=== PATIENT | male | born 1945 | race Caucasian/White ===

== ENCOUNTER 2020-02-17 20:06 | Inpatient (IN) | payer OTHER, BC ==
[2020-02-17] MEDS ORDERED: PANTOPRAZOLE SODIUM 40 MG in SODIUM CHLORIDE 100 ML IVPB ONE (20:32)
[2020-02-17] MEDS ORDERED: PANTOPRAZOLE SODIUM 40 MG/100 ML BAG IVPB ONE (21:05)
[2020-02-17 21:22] LABS: BASO % 0.5 % (0-2.0); EOS % 2.2 % (0-4.5); HEMATOCRIT 16.9 % (35.4-49); LYMPH % 7.9 % (8-40); MCH 30.7 pg (25.7-33.7); MCHC 29.3 g/dl (32.0-35.9); MEAN CELL VOLUME 104.5 fl (80-96); MEAN PLT VOLUME 8.6 fl (7.5-11.1); MONO % 9.7 % (3.8-10.2); NEUT % 79.7 % (42.8-82.8); PLATELET COUNT 430 K/MM3 (134-434); RBC 1.62 M/mm3 (4.00-5.60); RETICULOCYTES 7.28 % (0.5-1.5); WHITE BLOOD COUNT 6.3 K/mm3 (4.0-10.0)
[2020-02-17 21:28] LABS: INR 1.09 (0.83-1.09); PROTHROMBIN TIME (PATIENT) 13.1 SEC (9.7-13.0)
[2020-02-17 21:31] LABS: ACTIVATED PTT 29.9 SECONDS (25.2-36.5); CALCIUM 9.4 mg/dL (8.5-10.1)
[2020-02-17 21:32] LABS: ALBUMIN 2.3 g/dl (3.4-5.0); BLOOD UREA NITROGEN 46.5 mg/dL (7-18)
[2020-02-17 21:35] LABS: CREATININE 1.2 mg/dL (0.55-1.3)
[2020-02-17 21:37] LABS: BILIRUBIN,TOTAL 0.2 mg/dL (0.2-1); TOT PROT 6.5 g/dl (6.4-8.2)
[2020-02-17] MEDS ORDERED: ACETAMINOPHEN 1000 MG/100 ML BAG IVPB ONE (21:46)
[2020-02-17] MEDS ORDERED: PANTOPRAZOLE SODIUM 40 MG VIAL ONE (21:46)
[2020-02-17] MEDS: PANTOPRAZOLE SODIUM 80 MG in SODIUM CHLORIDE 100 ML IVPB SCH (22:08)
[2020-02-17] MEDS ORDERED: ACETAMINOPHEN INJECTION 100 ML IVPB ONE (22:13)
[2020-02-17 22:36] LABS: EPI CELLS 1 /uL (0-25.1); HYALINE CASTS 5 /uL (0-3.1); PH,URINE 7.5 (5.0-8.0); URINE APPEARANCE TURBID; URINE BACTERIA >9,000 /uL (0-1359); URINE BILIRUBIN NEGATIVE (NEGATIVE); URINE COLOR YELLOW; URINE GLUCOSE (UA) NEGATIVE (NEGATIVE); URINE KETONE NEGATIVE (NEGATIVE); URINE LEUK ESTERASE 3+ (NEGATIVE); URINE NITRITE NEGATIVE (NEGATIVE); URINE PROTEIN 1+ (NEGATIVE); URINE RBC 113 /uL (0-23.9); URINE UROBILINOGEN 0.2 mg/dL (0.2-1.0); URINE WBC 10624 /uL (0-25.8)
[2020-02-17 22:47] LABS: ANISOCYTOSIS 2+; MACROCYTOSIS 1+
[2020-02-17 22:49] LABS: PLATELET ESTIMATE ADEQUATE
[2020-02-17] MEDS ORDERED: CEFTRIAXONE 1,000 MG in DEXTROSE 5%-WATER - 50 ML IVPB ONE (23:22)
[2020-02-18] MEDS ORDERED: CEFTRIAXONE 1 GM/50 ML BAG ONE ×2 (00:54→09:34)
[2020-02-18] MEDS: PANTOPRAZOLE SODIUM 80 MG in SODIUM CHLORIDE 100 ML IVPB SCH (07:31)
[2020-02-18] MEDS: CEFTRIAXONE 1 GM in DEXTROSE 5%-WATER - 50 ML IVPB SCH (09:37)
[2020-02-18 09:56] LABS: BASO % 0.7 % (0-2.0); EOS % 1.9 % (0-4.5); HEMATOCRIT 23.4 % (35.4-49); HEMOGLOBIN 7.4 GM/dL (11.7-16.9); LYMPH % 5.7 % (8-40); MCH 31.1 pg (25.7-33.7); MCHC 31.7 g/dl (32.0-35.9); MEAN CELL VOLUME 98.1 fl (80-96); MEAN PLT VOLUME 8.4 fl (7.5-11.1); MONO % 9.4 % (3.8-10.2); NEUT % 82.3 % (42.8-82.8); PLATELET COUNT 398 K/MM3 (134-434); RBC 2.38 M/mm3 (4.00-5.60); RDW 19.5 % (11.9-15.9); WHITE BLOOD COUNT 6.6 K/mm3 (4.0-10.0)
[2020-02-18] MEDS ORDERED: POLYETHYLENE GLYCOL 3350 119 GM BTL PO SCH (10:11)
[2020-02-18 10:18] LABS: CALCIUM 9.2 mg/dL (8.5-10.1)
[2020-02-18 10:19] LABS: ALBUMIN 2.1 g/dl (3.4-5.0); BLOOD UREA NITROGEN 45.6 mg/dL (7-18); MAGNESIUM 2.6 mg/dL (1.8-2.4)
[2020-02-18 10:22] LABS: CREATININE 1.4 mg/dL (0.55-1.3)
[2020-02-18 10:24] LABS: BILIRUBIN,TOTAL 0.6 mg/dL (0.2-1)
[2020-02-18] MEDS: POLYETHYLENE GLYCOL 3350 119 GM BTL GT SCH ×2 (15:00→21:20)
[2020-02-18] MEDS ORDERED: DEXTROSE 5%-1/3 NS - 500 ML IV SCH (15:30)
[2020-02-18] MEDS: PANTOPRAZOLE SODIUM 40 MG VIAL IVPUSH SCH (21:20)
[2020-02-18] MEDS ORDERED: ACETAMINOPHEN 1000 MG/100 ML BAG IVPB ONE (22:26)
[2020-02-19] MEDS ORDERED: ACETAMINOPHEN 1000 MG/100 ML BAG IVPB ONE (03:53)
[2020-02-19] MEDS: POLYETHYLENE GLYCOL 3350 119 GM BTL GT SCH ×3 (05:33→22:41)
[2020-02-19 06:52] LABS: BASO % 0.3 % (0-2.0); EOS % 2.4 % (0-4.5); HEMATOCRIT 23.1 % (35.4-49); HEMOGLOBIN 7.5 GM/dL (11.7-16.9); LYMPH % 7.2 % (8-40); MCH 30.9 pg (25.7-33.7); MCHC 32.4 g/dl (32.0-35.9); MEAN CELL VOLUME 95.2 fl (80-96); MEAN PLT VOLUME 8.3 fl (7.5-11.1); MONO % 12.5 % (3.8-10.2); NEUT % 77.6 % (42.8-82.8); PLATELET COUNT 426 K/MM3 (134-434); RBC 2.42 M/mm3 (4.00-5.60); RDW 19.3 % (11.9-15.9); WHITE BLOOD COUNT 6.3 K/mm3 (4.0-10.0)
[2020-02-19 07:16] LABS: ALBUMIN 2.1 g/dl (3.4-5.0); BLOOD UREA NITROGEN 43.8 mg/dL (7-18); CALCIUM 9.1 mg/dL (8.5-10.1); CREATININE 1.4 mg/dL (0.55-1.3)
[2020-02-19 07:17] LABS: BILIRUBIN,TOTAL 0.4 mg/dL (0.2-1)
[2020-02-19 07:18] LABS: MAGNESIUM 2.4 mg/dL (1.8-2.4); TOT PROT 5.9 g/dl (6.4-8.2)
[2020-02-19] MEDS ORDERED: cefTRIAXone SODIUM 1 GM VIAL ONE (09:35)
[2020-02-19] MEDS ORDERED: DEXTROSE 5%-WATER - 50 ML IVPB ONE (09:35)
[2020-02-19] MEDS: CEFTRIAXONE 1 GM in DEXTROSE 5%-WATER - 50 ML IVPB SCH (09:41)
[2020-02-19] MEDS: PANTOPRAZOLE SODIUM 40 MG VIAL IVPUSH SCH (09:41)
[2020-02-19] MEDS ORDERED: LIDOCAINE HCL 5% TOP OINTMENT 50 GM TUBE TP SCH (10:30)
[2020-02-19] MEDS ORDERED: MECLIZINE HCL 12.5 MG TABLET GT PRN (12:36)
[2020-02-19] MEDS ORDERED: ACETAMINOPHEN 650 MG/20.3 ML ORAL SOLUTION (CUPS) GT PRN (12:39)
[2020-02-19] MEDS ORDERED: PT OWN MED DRAWER 7, Y5N ONE (15:08)
[2020-02-19] MEDS: LIDOCAINE HCL 5% TOP OINTMENT 50 GM TUBE TP SCH (15:38)
[2020-02-19] MEDS ORDERED: PEG 3350/NA SULF BICARB CL/KCL 4000 ML SOLN.RECON GT ONE (16:00)
[2020-02-19] MEDS ORDERED: PEG 3350/NA SULF BICARB CL/KCL 4000 ML SOLN.RECON PO ONE (16:00)
[2020-02-19] MEDS ORDERED: ONDANSETRON 4 MG/2 ML VIAL IVPUSH ONE (17:42)
[2020-02-19] MEDS ORDERED: RAPID SEQUENCE INTUBATION KIT NR ONE (18:04)
[2020-02-19] MEDS ORDERED: MIDAZOLAM HCL 2 MG/2 ML SINGLE DOSE VIAL ONE ×2 (18:05→18:06)
[2020-02-19] MEDS: DEXTROSE 5%-1/3 NS - 500 ML IV SCH (21:20)
[2020-02-19] MEDS: HYDROCORTISONE ACETATE 25 MG/SUPP.RECT RC SCH (22:42)
[2020-02-19] MEDS: MELATONIN 1 MG TABLET PO SCH (22:42)
[2020-02-20] MEDS: POLYETHYLENE GLYCOL 3350 119 GM BTL GT SCH ×3 (05:17→22:55)
[2020-02-20] MEDS ORDERED: PT OWN MED DRAWER 7, Y5N ONE ×3 (06:46→20:21)
[2020-02-20 07:22] LABS: BASO % 0.3 % (0-2.0); EOS % 3.2 % (0-4.5); HEMATOCRIT 24.1 % (35.4-49); HEMOGLOBIN 7.6 GM/dL (11.7-16.9); LYMPH % 5.7 % (8-40); MCH 30.6 pg (25.7-33.7); MCHC 31.6 g/dl (32.0-35.9); MEAN CELL VOLUME 96.8 fl (80-96); MEAN PLT VOLUME 8.5 fl (7.5-11.1); MONO % 8.7 % (3.8-10.2); NEUT % 82.1 % (42.8-82.8); PLATELET COUNT 432 K/MM3 (134-434); RBC 2.49 M/mm3 (4.00-5.60); RDW 19.7 % (11.9-15.9); WHITE BLOOD COUNT 6.4 K/mm3 (4.0-10.0)
[2020-02-20 07:53] LABS: ALBUMIN 2.2 g/dl (3.4-5.0); BLOOD UREA NITROGEN 33.7 mg/dL (7-18); CALCIUM 9.1 mg/dL (8.5-10.1)
[2020-02-20 07:56] LABS: CREATININE 1.4 mg/dL (0.55-1.3)
[2020-02-20 07:58] LABS: BILIRUBIN,TOTAL 0.5 mg/dL (0.2-1); TOT PROT 6.2 g/dl (6.4-8.2)
[2020-02-20] MEDS ORDERED: cefTRIAXone SODIUM 1 GM VIAL ONE (10:52)
[2020-02-20] MEDS ORDERED: DEXTROSE 5%-WATER - 50 ML IVPB ONE (10:53)
[2020-02-20] MEDS: DEXTROSE 5%-1/3 NS - 500 ML IV SCH ×2 (10:54→22:54)
[2020-02-20] MEDS: CEFTRIAXONE 1 GM in DEXTROSE 5%-WATER - 50 ML IVPB SCH (10:54)
[2020-02-20] MEDS: LIDOCAINE HCL 5% TOP OINTMENT 50 GM TUBE TP SCH (11:00)
[2020-02-20] MEDS: DOCUSATE NA 100 MG/10 ML UNIT-DOSE CUPS GT SCH (11:20)
[2020-02-20] MEDS: FAMOTIDINE 40 MG/5 ML ORAL SUSPENSION PEG SCH ×2 (11:20→18:00)
[2020-02-20] MEDS: FOLIC ACID 1 MG TABLET (FP) GT SCH (12:55)
[2020-02-20] MEDS: HYDROCORTISONE ACETATE 25 MG/SUPP.RECT RC SCH (22:55)
[2020-02-20] MEDS: MELATONIN 1 MG TABLET PO SCH (22:55)
[2020-02-21] MEDS: POLYETHYLENE GLYCOL 3350 119 GM BTL GT SCH ×3 (06:37→21:19)
[2020-02-21] MEDS ORDERED: cefTRIAXone SODIUM 1 GM VIAL ONE (07:57)
[2020-02-21] MEDS ORDERED: DEXTROSE 5%-WATER - 50 ML IVPB ONE (07:57)
[2020-02-21] MEDS: DOCUSATE NA 100 MG/10 ML UNIT-DOSE CUPS GT SCH (09:22)
[2020-02-21] MEDS: CEFTRIAXONE 1 GM in DEXTROSE 5%-WATER - 50 ML IVPB SCH (09:23)
[2020-02-21] MEDS: FOLIC ACID 1 MG TABLET (FP) GT SCH (09:23)
[2020-02-21] MEDS: LIDOCAINE HCL 5% TOP OINTMENT 50 GM TUBE TP SCH (09:24)
[2020-02-21] MEDS: FAMOTIDINE 40 MG/5 ML ORAL SUSPENSION PEG SCH (10:10)
[2020-02-21] MEDS: DEXTROSE 5%-1/3 NS - 500 ML IV SCH (15:49)
[2020-02-21] MEDS: HYDROCORTISONE ACETATE 25 MG/SUPP.RECT RC SCH (21:19)
[2020-02-21] MEDS: ERTAPENEM SODIUM 1 GM in SODIUM CHLORIDE 50 ML IVPB SCH (21:19)
[2020-02-21] MEDS: MELATONIN 1 MG TABLET PO SCH (21:32)
[2020-02-21] MEDS ORDERED: MELATONIN 5 MG TABLETS PO ONE (21:38)
[2020-02-21] MEDS ORDERED: PT OWN MED DRAWER 7, Y5N ONE (22:52)
[2020-02-22] MEDS: POLYETHYLENE GLYCOL 3350 119 GM BTL GT SCH ×3 (06:23→22:55)
[2020-02-22 07:38] LABS: ALBUMIN 2.1 g/dl (3.4-5.0); BLOOD UREA NITROGEN 27.8 mg/dL (7-18); CALCIUM 9.2 mg/dL (8.5-10.1)
[2020-02-22 07:42] LABS: BILIRUBIN,TOTAL 0.4 mg/dL (0.2-1)
[2020-02-22 08:09] LABS: BASO % 0.3 % (0-2.0); EOS % 2.8 % (0-4.5); HEMATOCRIT 23.8 % (35.4-49); HEMOGLOBIN 7.6 GM/dL (11.7-16.9); LYMPH % 7.6 % (8-40); MCH 30.7 pg (25.7-33.7); MCHC 31.8 g/dl (32.0-35.9); MEAN CELL VOLUME 96.5 fl (80-96); MEAN PLT VOLUME 8.5 fl (7.5-11.1); MONO % 10.7 % (3.8-10.2); NEUT % 78.6 % (42.8-82.8); PLATELET COUNT 405 K/MM3 (134-434); RBC 2.47 M/mm3 (4.00-5.60); RDW 18.8 % (11.9-15.9); WHITE BLOOD COUNT 4.9 K/mm3 (4.0-10.0)
[2020-02-22] MEDS ORDERED: PT OWN MED DRAWER 7, Y5N ONE ×3 (10:15→22:06)
[2020-02-22] MEDS: FOLIC ACID 1 MG TABLET (FP) GT SCH (10:16)
[2020-02-22] MEDS: ERTAPENEM SODIUM 1 GM in SODIUM CHLORIDE 50 ML IVPB SCH (10:17)
[2020-02-22] MEDS: LIDOCAINE HCL 5% TOP OINTMENT 50 GM TUBE TP SCH (10:18)
[2020-02-22] MEDS: FAMOTIDINE 40 MG/5 ML ORAL SUSPENSION PEG SCH (10:18)
[2020-02-22 10:48] LABS: PLATELET ESTIMATE NORMAL
[2020-02-22] MEDS: DOCUSATE NA 100 MG/10 ML UNIT-DOSE CUPS GT SCH (11:49)
[2020-02-22] MEDS: DEXTROSE 5%-1/3 NS - 500 ML IV SCH (16:45)
[2020-02-22] MEDS ORDERED: DEXTROSE 5%-1/3 NS - 500 ML IV SCH ×2 (16:51→17:53)
[2020-02-22] MEDS: HYDROCORTISONE ACETATE 25 MG/SUPP.RECT RC SCH (22:55)
[2020-02-22] MEDS: MELATONIN 1 MG TABLET PO SCH (22:55)
[2020-02-23] MEDS: POLYETHYLENE GLYCOL 3350 119 GM BTL GT SCH ×3 (05:27→22:28)
[2020-02-23 06:55] LABS: BASO % 0.4 % (0-2.0); EOS % 3.3 % (0-4.5); HEMATOCRIT 24.2 % (35.4-49); HEMOGLOBIN 7.7 GM/dL (11.7-16.9); LYMPH % 5.3 % (8-40); MCH 30.8 pg (25.7-33.7); MCHC 31.7 g/dl (32.0-35.9); MEAN CELL VOLUME 97.2 fl (80-96); PLATELET COUNT 340 K/MM3 (134-434); RBC 2.49 M/mm3 (4.00-5.60); RDW 19.2 % (11.9-15.9)
[2020-02-23 07:20] LABS: BLOOD UREA NITROGEN 22.7 mg/dL (7-18); CALCIUM 9.2 mg/dL (8.5-10.1)
[2020-02-23 07:24] LABS: CREATININE 0.9 mg/dL (0.55-1.3)
[2020-02-23 07:25] LABS: BILIRUBIN,TOTAL 0.4 mg/dL (0.2-1); TOT PROT 5.8 g/dl (6.4-8.2)
[2020-02-23] MEDS ORDERED: PT OWN MED DRAWER 7, Y5N ONE (09:21)
[2020-02-23] MEDS: FOLIC ACID 1 MG TABLET (FP) GT SCH (10:52)
[2020-02-23] MEDS: FAMOTIDINE 40 MG/5 ML ORAL SUSPENSION PEG SCH (10:53)
[2020-02-23] MEDS: LIDOCAINE HCL 5% TOP OINTMENT 50 GM TUBE TP SCH (10:53)
[2020-02-23] MEDS: ERTAPENEM SODIUM 1 GM in SODIUM CHLORIDE 50 ML IVPB SCH (10:53)
[2020-02-23] MEDS: DEXTROSE 5%-1/3 NS - 500 ML IV SCH (22:26)
[2020-02-23] MEDS: MELATONIN 1 MG TABLET PO SCH (22:28)
[2020-02-23] MEDS: HYDROCORTISONE ACETATE 25 MG/SUPP.RECT RC SCH (22:28)
[2020-02-24] MEDS: POLYETHYLENE GLYCOL 3350 119 GM BTL GT SCH ×3 (05:50→23:17)
[2020-02-24 07:09] LABS: ALBUMIN 1.9 g/dl (3.4-5.0); BLOOD UREA NITROGEN 19.1 mg/dL (7-18); CALCIUM 8.6 mg/dL (8.5-10.1)
[2020-02-24 07:12] LABS: CREATININE 0.9 mg/dL (0.55-1.3)
[2020-02-24 07:13] LABS: BASO % 0.2 % (0-2.0); EOS % 3.8 % (0-4.5); HEMATOCRIT 23.8 % (35.4-49); HEMOGLOBIN 7.9 GM/dL (11.7-16.9); LYMPH % 7.5 % (8-40); MCH 31.6 pg (25.7-33.7); MEAN CELL VOLUME 95.7 fl (80-96); MEAN PLT VOLUME 8.4 fl (7.5-11.1); NEUT % 79.5 % (42.8-82.8); PLATELET COUNT 360 K/MM3 (134-434); RBC 2.49 M/mm3 (4.00-5.60); RDW 18.4 % (11.9-15.9); WHITE BLOOD COUNT 6.2 K/mm3 (4.0-10.0)
[2020-02-24 07:14] LABS: BILIRUBIN,TOTAL 0.1 mg/dL (0.2-1); TOT PROT 5.6 g/dl (6.4-8.2)
[2020-02-24] MEDS ORDERED: PEG 3350/NA SULF BICARB CL/KCL 4000 ML SOLN.RECON PEG ONE (09:00)
[2020-02-24] MEDS: FOLIC ACID 1 MG TABLET (FP) GT SCH (10:01)
[2020-02-24] MEDS: ERTAPENEM SODIUM 1 GM in SODIUM CHLORIDE 50 ML IVPB SCH (10:02)
[2020-02-24] MEDS: FAMOTIDINE 40 MG/5 ML ORAL SUSPENSION PEG SCH (10:04)
[2020-02-24] MEDS: DEXTROSE 5%-1/3 NS - 500 ML IV SCH (12:00)
[2020-02-24] MEDS ORDERED: BISACODYL 10 MG SUPP.RECT PR ONE (21:00)
[2020-02-24] MEDS: LIDOCAINE HCL 5% TOP OINTMENT 50 GM TUBE TP SCH (23:06)
[2020-02-24] MEDS ORDERED: PT OWN MED DRAWER 7, Y5N ONE (23:14)
[2020-02-24] MEDS: MELATONIN 1 MG TABLET PO SCH (23:50)
[2020-02-25] MEDS: oxyCODONE HCL 5 MG TABLET GT PRN ×2 (00:04→22:14)
[2020-02-25] MEDS: DEXTROSE 5%-1/3 NS - 500 ML IV SCH ×2 (01:00→22:09)
[2020-02-25] MEDS: POLYETHYLENE GLYCOL 3350 119 GM BTL GT SCH ×2 (06:36→22:02)
[2020-02-25 06:57] LABS: BASO % 0.4 % (0-2.0); EOS % 4.6 % (0-4.5); HEMATOCRIT 24.8 % (35.4-49); LYMPH % 9.5 % (8-40); MCH 30.9 pg (25.7-33.7); MCHC 32.4 g/dl (32.0-35.9); MEAN CELL VOLUME 95.4 fl (80-96); MEAN PLT VOLUME 8.4 fl (7.5-11.1); NEUT % 76.5 % (42.8-82.8); PLATELET COUNT 372 K/MM3 (134-434); RDW 18.6 % (11.9-15.9); WHITE BLOOD COUNT 5.1 K/mm3 (4.0-10.0)
[2020-02-25 07:18] LABS: CALCIUM 8.7 mg/dL (8.5-10.1)
[2020-02-25 07:19] LABS: ALBUMIN 1.9 g/dl (3.4-5.0); BLOOD UREA NITROGEN 15.2 mg/dL (7-18)
[2020-02-25 07:23] LABS: BILIRUBIN,TOTAL 0.4 mg/dL (0.2-1); CREATININE 0.7 mg/dL (0.55-1.3)
[2020-02-25 07:24] LABS: TOT PROT 5.8 g/dl (6.4-8.2)
[2020-02-25] MEDS: DEXTROSE 5%-0.45% SALINE 1,000 ML IV SCH ×2 (08:30→22:13)
[2020-02-25] MEDS: FAMOTIDINE 40 MG/5 ML ORAL SUSPENSION PEG SCH (10:00)
[2020-02-25] MEDS: FOLIC ACID 1 MG TABLET (FP) GT SCH (10:02)
[2020-02-25] MEDS ORDERED: PT OWN MED DRAWER 7, Y5N ONE ×3 (10:05→21:59)
[2020-02-25] MEDS: ERTAPENEM SODIUM 1 GM in SODIUM CHLORIDE 50 ML IVPB SCH (10:08)
[2020-02-25] MEDS: LIDOCAINE HCL 5% TOP OINTMENT 50 GM TUBE TP SCH (16:00)
[2020-02-25] MEDS: MELATONIN 1 MG TABLET PO SCH (22:13)
[2020-02-26] MEDS: ACETAMINOPHEN 650 MG/20.3 ML ORAL SOLUTION (CUPS) GT PRN ×2 (04:27→22:38)
[2020-02-26] MEDS: oxyCODONE HCL 5 MG TABLET GT PRN ×2 (04:29→22:37)
[2020-02-26 07:09] LABS: BASO % 0.5 % (0-2.0); EOS % 4.3 % (0-4.5); HEMATOCRIT 23.8 % (35.4-49); HEMOGLOBIN 7.8 GM/dL (11.7-16.9); LYMPH % 11.9 % (8-40); MCHC 32.9 g/dl (32.0-35.9); MEAN CELL VOLUME 94.2 fl (80-96); MEAN PLT VOLUME 8.4 fl (7.5-11.1); MONO % 11.7 % (3.8-10.2); NEUT % 71.6 % (42.8-82.8); PLATELET COUNT 352 K/MM3 (134-434); RBC 2.53 M/mm3 (4.00-5.60); RDW 18.2 % (11.9-15.9); WHITE BLOOD COUNT 3.7 K/mm3 (4.0-10.0)
[2020-02-26 07:21] LABS: ALBUMIN 1.8 g/dl (3.4-5.0); CALCIUM 8.8 mg/dL (8.5-10.1)
[2020-02-26 07:24] LABS: CREATININE 0.8 mg/dL (0.55-1.3)
[2020-02-26 07:25] LABS: BILIRUBIN,TOTAL 0.5 mg/dL (0.2-1); TOT PROT 5.5 g/dl (6.4-8.2)
[2020-02-26] MEDS ORDERED: PT OWN MED DRAWER 7, Y5N ONE ×3 (09:24→21:58)
[2020-02-26] MEDS: FAMOTIDINE 40 MG/5 ML ORAL SUSPENSION PEG SCH (09:31)
[2020-02-26] MEDS: FOLIC ACID 1 MG TABLET (FP) GT SCH (09:32)
[2020-02-26] MEDS: POLYETHYLENE GLYCOL 3350 119 GM BTL GT SCH ×2 (09:49→22:38)
[2020-02-26] MEDS: LIDOCAINE HCL 5% TOP OINTMENT 50 GM TUBE TP SCH (09:49)
[2020-02-26] MEDS: ERTAPENEM SODIUM 1 GM in SODIUM CHLORIDE 50 ML IVPB SCH (10:33)
[2020-02-26] MEDS: MELATONIN 1 MG TABLET PO SCH (22:37)
[2020-02-26] MEDS: DEXTROSE 5%-0.45% SALINE 1,000 ML IV SCH (22:37)
[2020-02-27] MEDS: DEXTROSE 5%-0.45% SALINE 1,000 ML IV SCH ×2 (02:51→11:54)
[2020-02-27] MEDS ORDERED: PT OWN MED DRAWER 7, Y5N ONE ×2 (08:57→11:43)
[2020-02-27] MEDS: ERTAPENEM SODIUM 1 GM in SODIUM CHLORIDE 50 ML IVPB SCH (09:02)
[2020-02-27] MEDS: FAMOTIDINE 40 MG/5 ML ORAL SUSPENSION PEG SCH (09:02)
[2020-02-27] MEDS: FOLIC ACID 1 MG TABLET (FP) GT SCH (09:04)
[2020-02-27] MEDS: POLYETHYLENE GLYCOL 3350 119 GM BTL GT SCH (09:08)
[2020-02-27] MEDS: LIDOCAINE HCL 5% TOP OINTMENT 50 GM TUBE TP SCH (09:19)
[2020-02-27 10:51] LABS: BASO % 0.2 % (0-2.0); EOS % 3.5 % (0-4.5); HEMOGLOBIN 8.4 GM/dL (11.7-16.9); LYMPH % 7.6 % (8-40); MCH 31.2 pg (25.7-33.7); MCHC 32.4 g/dl (32.0-35.9); MEAN CELL VOLUME 96.3 fl (80-96); MEAN PLT VOLUME 8.6 fl (7.5-11.1); MONO % 10.1 % (3.8-10.2); NEUT % 78.6 % (42.8-82.8); PLATELET COUNT 379 K/MM3 (134-434); RDW 18.1 % (11.9-15.9); WHITE BLOOD COUNT 4.5 K/mm3 (4.0-10.0)
[2020-02-27 11:12] LABS: ALBUMIN 1.9 g/dl (3.4-5.0); CALCIUM 8.6 mg/dL (8.5-10.1)
[2020-02-27 11:13] LABS: BLOOD UREA NITROGEN 11.6 mg/dL (7-18)
[2020-02-27 11:16] LABS: CREATININE 0.7 mg/dL (0.55-1.3)
[2020-02-27 11:17] LABS: BILIRUBIN,TOTAL 0.2 mg/dL (0.2-1); TOT PROT 5.7 g/dl (6.4-8.2)
[2020-02-27] MEDS: NITROFURANTOIN MACROCRYSTAL 50 MG CAPSULE (FP) PO SCH ×2 (11:44→18:23)
[2020-02-27 16:26] VITALS: BP 127/73; PULSE 73; TEMP 98.1
== END 2020-02-27 19:20 | DRG 378 ==
LOC: JER 20:06 → JERBED 22:24 → JICU 02-18 12:34
PROVIDERS: ADMIT Family Medicine; ATTEND Family Medicine
PROC: 5A1955Z Respiratory Ventilation, Greater than 96 Consecutive Hours (ICD-10-PCS; principal; 2020-02-17)
PROC: 30233N1 Transfusion of Nonautologous Red Blood Cells into Peripheral Vein, Percutaneous Approach (ICD-10-PCS; 2020-02-18)
PROC: 0DB68ZX Excision of Stomach, Via Natural or Artificial Opening Endoscopic, Diagnostic (ICD-10-PCS; 2020-02-19)
PROC: 0DBN8ZX Excision of Sigmoid Colon, Via Natural or Artificial Opening Endoscopic, Diagnostic (ICD-10-PCS; 2020-02-25)
PROC: 0DBP8ZX Excision of Rectum, Via Natural or Artificial Opening Endoscopic, Diagnostic (ICD-10-PCS; 2020-02-25)
DX: K92.2 Gastrointestinal hemorrhage, unspecified (principal); D62 Acute posthemorrhagic anemia; N39.0 Urinary tract infection, site not specified; J96.10 Chronic respiratory failure, unspecified whether with hypoxia or hypercapnia; N17.9 Acute kidney failure, unspecified; E87.0 Hyperosmolality and hypernatremia; K62.6 Ulcer of anus and rectum; Z16.12 Extended spectrum beta lactamase (ESBL) resistance; K63.5 Polyp of colon; K64.8 Other hemorrhoids; K29.50 Unspecified chronic gastritis without bleeding; K57.30 Diverticulosis of large intestine without perforation or abscess without bleeding; I10 Essential (primary) hypertension; I48.91 Unspecified atrial fibrillation; J44.9 Chronic obstructive pulmonary disease, unspecified; Z93.0 Tracheostomy status; N18.9 Chronic kidney disease, unspecified; D63.1 Anemia in chronic kidney disease; Z93.1 Gastrostomy status; E87.5 Hyperkalemia; K62.5 Hemorrhage of anus and rectum; B96.20 Unspecified Escherichia coli [E. coli] as the cause of diseases classified elsewhere
CPT/HCPCS: 36415; 36430; 71045-TC-FY; 74177-TC; 76705-TC; 80053; 81003; 82272; 82550; 82607; 82728; 83540; 83550; 83605; 83735; 84439; 84443; 84484; 85025; 85045; 85610; 85730; 86850; 86900; 86901; 86922; 87040; 87086; 87186; 88305-TC; 93005; 93010; 94002; 97161-GP; 99285-25; C9803; J0131; P9058; U0003

== ENCOUNTER 2020-03-02 06:48 | Inpatient (IN) | payer OTHER, BC ==
[2020-03-02 07:17] LABS: BASO % 0.4 % (0-2.0); EOS % 2.2 % (0-4.5); HEMATOCRIT 23.9 % (35.4-49); HEMOGLOBIN 7.8 GM/dL (11.7-16.9); LYMPH % 6.7 % (8-40); MCH 30.6 pg (25.7-33.7); MCHC 32.8 g/dl (32.0-35.9); MEAN CELL VOLUME 93.5 fl (80-96); MEAN PLT VOLUME 8.2 fl (7.5-11.1); MONO % 15.3 % (3.8-10.2); NEUT % 75.4 % (42.8-82.8); PLATELET COUNT 345 K/MM3 (134-434); RBC 2.55 M/mm3 (4.00-5.60); WHITE BLOOD COUNT 5.5 K/mm3 (4.0-10.0)
[2020-03-02 07:31] LABS: ALBUMIN 2.3 g/dl (3.4-5.0); BLOOD UREA NITROGEN 32.9 mg/dL (7-18); CALCIUM 9.3 mg/dL (8.5-10.1)
[2020-03-02 07:35] LABS: CREATININE 0.8 mg/dL (0.55-1.3)
[2020-03-02 07:36] LABS: BILIRUBIN,TOTAL 0.3 mg/dL (0.2-1); TOT PROT 6.6 g/dl (6.4-8.2)
[2020-03-02] MEDS ORDERED: PIPERACILLIN/TAZOB 3.375 GM 3.375 GM in DEXTROSE 5%-WATER - 50 ML IVPB ONE (09:25)
[2020-03-02] MEDS ORDERED: VANCOMYCIN 1 GM in D5W (PRE-DOCKED) 1,000 MG/250 ML IVPB ONE (09:25)
[2020-03-02] MEDS ORDERED: AZITHROMYCIN IVPB 500 MG in DEXTROSE 5%-WATER - 250 ML IVPB ONE (09:26)
[2020-03-02] MEDS ORDERED: PIPERACILLIN/TAZOB 3.375 GM 3.375 GM/50 ML BAG IVPB ONE (09:59)
[2020-03-02] MEDS ORDERED: VANCOMYCIN 1 GRAM (PRE-DOCKED) 1,000 MG/250 ML BAG IVPB ONE (09:59)
[2020-03-02] MEDS ORDERED: AZITHROMYCIN IVPB 500 MG/250 ML BAG IVPB ONE (09:59)
[2020-03-02] MEDS ORDERED: ALBUTEROL SO4 2.5/IPRATROPIUM 0.5 INH SOL 3 ML VIAL.NEB. NEB ONE ×2 (10:22→12:33)
[2020-03-02] MEDS ORDERED: MECLIZINE HCL 12.5 MG TABLET GT PRN (10:25)
[2020-03-02] MEDS ORDERED: ACETAMINOPHEN 325 MG TABLET (FP) PO PRN (10:45)
[2020-03-02 11:23] LABS: N-TERMINAL BNP 1394.4 pg/ml (5-125)
[2020-03-02 12:02] LABS: EPI CELLS >36 /uL (0-25.1); HYALINE CASTS 4 /uL (0-3.1); PH,URINE 6.5 (5.0-8.0); URINE APPEARANCE CLEAR; URINE BACTERIA 18 /uL (0-1359); URINE BILIRUBIN NEGATIVE (NEGATIVE); URINE COLOR YELLOW; URINE GLUCOSE (UA) NEGATIVE (NEGATIVE); URINE KETONE NEGATIVE (NEGATIVE); URINE LEUK ESTERASE 1+ (NEGATIVE); URINE NITRITE NEGATIVE (NEGATIVE); URINE PROTEIN TRACE (NEGATIVE); URINE RBC 7 /uL (0-23.9); URINE UROBILINOGEN 0.2 mg/dL (0.2-1.0); URINE WBC 156 /uL (0-25.8)
[2020-03-02] MEDS ORDERED: MELATONIN 5 MG TABLETS ONE (12:33)
[2020-03-02] MEDS ORDERED: FAMOTIDINE 20 MG TABLET ONE (12:33)
[2020-03-02] MEDS ORDERED: FOLIC ACID 1 MG TABLET (FP) ONE (12:34)
[2020-03-02] MEDS ORDERED: MEROPENEM 1 GM VIAL (RESTRICTED TO ID) IVPB ONE ×2 (16:49→21:49)
[2020-03-02] MEDS ORDERED: oxyCODONE HCL 5 MG TABLET ONE (16:50)
[2020-03-02] MEDS: oxyCODONE HCL 5 MG TABLET GT PRN (17:40)
[2020-03-02] MEDS: MEROPENEM 1 GM in DEXTROSE 5%-WATER 100 ML IVPB SCH ×2 (17:40→23:07)
[2020-03-02 22:54] LABS: URINE APPEARANCE CLEAR; URINE BILIRUBIN NEGATIVE (NEGATIVE); URINE COLOR YELLOW; URINE GLUCOSE (UA) NEGATIVE (NEGATIVE); URINE KETONE NEGATIVE (NEGATIVE)
[2020-03-02 22:55] LABS: EPI CELLS 99 /uL (0-25.1); HYALINE CASTS 1 /uL (0-3.1); PH,URINE 6.5 (5.0-8.0); URINE BACTERIA 17 /uL (0-1359); URINE LEUK ESTERASE 1+ (NEGATIVE); URINE NITRITE NEGATIVE (NEGATIVE); URINE PROTEIN NEGATIVE (NEGATIVE); URINE RBC 15 /uL (0-23.9); URINE UROBILINOGEN 0.2 mg/dL (0.2-1.0); URINE WBC 298 /uL (0-25.8)
[2020-03-03] MEDS ORDERED: oxyCODONE HCL 5 MG TABLET ONE (02:30)
[2020-03-03] MEDS: oxyCODONE HCL 5 MG TABLET GT PRN (02:50)
[2020-03-03] MEDS ORDERED: DEXAMETHASONE SOD PHOSPHATE 4 MG/1 ML VIAL IVPUSH SCH (09:00)
[2020-03-03] MEDS ORDERED: MEROPENEM 1 GM VIAL (RESTRICTED TO ID) IVPB ONE (10:18)
[2020-03-03] MEDS: MEROPENEM 1 GM in DEXTROSE 5%-WATER 100 ML IVPB SCH ×2 (10:32→23:20)
[2020-03-03] MEDS: FOLIC ACID 1 MG TABLET (FP) PO SCH (10:32)
[2020-03-03] MEDS: FAMOTIDINE 40 MG/5 ML ORAL SUSPENSION PEG SCH (10:32)
[2020-03-03] MEDS ORDERED: DEXAMETHASONE SOD PHOSPHATE 10 MG/1 ML VIAL ONE (10:33)
[2020-03-03] MEDS: VITAMIN B COMPLEX W/C COMBO TABLET (FP) PO SCH (10:34)
[2020-03-03 12:09] LABS: BASO % 0.5 % (0-2.0); EOS % 5.4 % (0-4.5); HEMATOCRIT 22.1 % (35.4-49); HEMOGLOBIN 7.1 GM/dL (11.7-16.9); LYMPH % 6.7 % (8-40); MCH 30.3 pg (25.7-33.7); MEAN CELL VOLUME 94.6 fl (80-96); MEAN PLT VOLUME 8.5 fl (7.5-11.1); MONO % 16.8 % (3.8-10.2); NEUT % 70.6 % (42.8-82.8); PLATELET COUNT 309 K/MM3 (134-434); RBC 2.34 M/mm3 (4.00-5.60); RDW 16.9 % (11.9-15.9); WHITE BLOOD COUNT 4.2 K/mm3 (4.0-10.0)
[2020-03-03 12:27] LABS: POTASSIUM 4.7 mmol/L (3.5-5.1)
[2020-03-03 12:31] LABS: CALCIUM 9.1 mg/dL (8.5-10.1)
[2020-03-03 12:32] LABS: ALBUMIN 2.1 g/dl (3.4-5.0)
[2020-03-03 12:35] LABS: CREATININE 0.9 mg/dL (0.55-1.3)
[2020-03-03 12:36] LABS: BILIRUBIN,TOTAL 0.4 mg/dL (0.2-1); BLOOD UREA NITROGEN 25.4 mg/dL (7-18); TOT PROT 6.1 g/dl (6.4-8.2)
[2020-03-03] MEDS ORDERED: MELATONIN 1 MG TABLET PO SCH (22:00)
[2020-03-04] MEDS ORDERED: ACETAMINOPHEN 325 MG TABLET (FP) ONE (00:20)
[2020-03-04] MEDS ORDERED: MEROPENEM 1 GM VIAL (RESTRICTED TO ID) IVPB ONE ×2 (11:21→23:39)
[2020-03-04] MEDS: FAMOTIDINE 40 MG/5 ML ORAL SUSPENSION PEG SCH (11:36)
[2020-03-04] MEDS: VITAMIN B COMPLEX W/C COMBO TABLET (FP) PO SCH (11:36)
[2020-03-04] MEDS: FOLIC ACID 1 MG TABLET (FP) PO SCH (11:36)
[2020-03-04] MEDS: MEROPENEM 1 GM in DEXTROSE 5%-WATER 100 ML IVPB SCH ×2 (11:36→23:53)
[2020-03-04] MEDS ORDERED: MEROPENEM 1 GM in DEXTROSE 5%-WATER 100 ML IVPB ONE (22:00)
[2020-03-04] MEDS ORDERED: MELATONIN 5 MG TABLETS ONE (23:39)
[2020-03-04] MEDS ORDERED: PANTOPRAZOLE SODIUM 40 MG VIAL ONE (23:40)
[2020-03-04] MEDS: PANTOPRAZOLE SODIUM 40 MG VIAL IVPUSH SCH (23:53)
[2020-03-04] MEDS: MELATONIN 1 MG TABLET PO SCH (23:53)
[2020-03-04] MEDS ORDERED: oxyCODONE HCL 5 MG TABLET ONE (23:55)
[2020-03-05] MEDS ORDERED: DEXTROSE 5%-WATER 100 ML IVPB ONE ×3 (05:58→21:00)
[2020-03-05] MEDS ORDERED: MEROPENEM 1 GM VIAL (RESTRICTED TO ID) IVPB ONE ×3 (05:58→21:00)
[2020-03-05] MEDS: MEROPENEM 1 GM in DEXTROSE 5%-WATER 100 ML IVPB SCH ×3 (06:02→21:05)
[2020-03-05 07:23] VITALS: BMI 24.7
[2020-03-05] MEDS: ALBUTEROL SO4 2.5/IPRATROPIUM 0.5 INH SOL 3 ML VIAL.NEB. NEB SCH ×2 (08:45→20:59)
[2020-03-05] MEDS: FOLIC ACID 1 MG TABLET (FP) PEG SCH (10:57)
[2020-03-05] MEDS: PANTOPRAZOLE SODIUM 40 MG VIAL IVPUSH SCH (10:57)
[2020-03-05 11:48] LABS: BASO % 0.7 % (0-2.0); EOS % 4.7 % (0-4.5); HEMATOCRIT 22.5 % (35.4-49); HEMOGLOBIN 7.2 GM/dL (11.7-16.9); LYMPH % 6.6 % (8-40); MCHC 32.1 g/dl (32.0-35.9); MEAN CELL VOLUME 93.6 fl (80-96); MEAN PLT VOLUME 8.6 fl (7.5-11.1); MONO % 14.7 % (3.8-10.2); NEUT % 73.3 % (42.8-82.8); PLATELET COUNT 294 K/MM3 (134-434); RDW 16.8 % (11.9-15.9); WHITE BLOOD COUNT 3.8 K/mm3 (4.0-10.0)
[2020-03-05 12:10] LABS: POTASSIUM 4.4 mmol/L (3.5-5.1)
[2020-03-05 12:12] LABS: ALBUMIN 2.1 g/dl (3.4-5.0); BLOOD UREA NITROGEN 23.8 mg/dL (7-18); CALCIUM 9.5 mg/dL (8.5-10.1)
[2020-03-05 12:15] LABS: CREATININE 0.9 mg/dL (0.55-1.3)
[2020-03-05 12:17] LABS: BILIRUBIN,TOTAL 0.4 mg/dL (0.2-1)
[2020-03-05] MEDS: VITAMIN B COMPLEX W/C COMBO TABLET (FP) PO SCH (12:36)
[2020-03-05] MEDS: FAMOTIDINE 40 MG/5 ML ORAL SUSPENSION PEG SCH (12:36)
[2020-03-05] MEDS ORDERED: DEXTROSE 50%-WATER 25 GM/50 ML DISP.SYRIN ONE (13:16)
[2020-03-05] MEDS ORDERED: DEXTROSE 50%-WATER 25 GM/50 ML DISP.SYRIN IVPUSH ONE ×2 (13:30→14:15)
[2020-03-05] MEDS ORDERED: DEXTROSE 50%-WATER - 25 GM/50 ML VIAL IVPUSH ONE (13:30)
[2020-03-05] MEDS: MELATONIN 1 MG TABLET PO SCH (21:06)
[2020-03-05] MEDS: ACETAMINOPHEN 650 MG/20.3 ML ORAL SOLUTION (CUPS) GT PRN (22:46)
[2020-03-05] MEDS: oxyCODONE HCL 5 MG TABLET GT PRN (22:46)
[2020-03-06] MEDS ORDERED: DEXTROSE 5%-WATER 100 ML IVPB ONE ×3 (05:15→21:37)
[2020-03-06] MEDS ORDERED: MEROPENEM 1 GM VIAL (RESTRICTED TO ID) IVPB ONE ×3 (05:15→21:37)
[2020-03-06] MEDS: MEROPENEM 1 GM in DEXTROSE 5%-WATER 100 ML IVPB SCH ×3 (05:18→21:39)
[2020-03-06 09:27] LABS: BASO % 0.3 % (0-2.0); EOS % 3.5 % (0-4.5); HEMATOCRIT 21.2 % (35.4-49); HEMOGLOBIN 7.1 GM/dL (11.7-16.9); LYMPH % 4.6 % (8-40); MCH 30.5 pg (25.7-33.7); MCHC 33.4 g/dl (32.0-35.9); MEAN CELL VOLUME 91.3 fl (80-96); MEAN PLT VOLUME 8.8 fl (7.5-11.1); MONO % 15.1 % (3.8-10.2); NEUT % 76.5 % (42.8-82.8); PLATELET COUNT 285 K/MM3 (134-434); RBC 2.32 M/mm3 (4.00-5.60); RDW 16.7 % (11.9-15.9)
[2020-03-06] MEDS: ALBUTEROL SO4 2.5/IPRATROPIUM 0.5 INH SOL 3 ML VIAL.NEB. NEB SCH ×2 (09:28→15:30)
[2020-03-06 09:50] LABS: POTASSIUM 4.3 mmol/L (3.5-5.1)
[2020-03-06 09:52] LABS: CALCIUM 8.8 mg/dL (8.5-10.1)
[2020-03-06 09:53] LABS: BLOOD UREA NITROGEN 23.2 mg/dL (7-18)
[2020-03-06 09:56] LABS: CREATININE 0.9 mg/dL (0.55-1.3)
[2020-03-06 09:57] LABS: BILIRUBIN,TOTAL 0.4 mg/dL (0.2-1)
[2020-03-06] MEDS: VITAMIN B COMPLEX W/C COMBO TABLET (FP) PO SCH (11:21)
[2020-03-06] MEDS: FOLIC ACID 1 MG TABLET (FP) PEG SCH (11:21)
[2020-03-06] MEDS: FAMOTIDINE 40 MG/5 ML ORAL SUSPENSION PEG SCH (11:22)
[2020-03-06] MEDS ORDERED: FERRIC CARBOXYMALTOSE 750 MG in SODIUM CHLORIDE 250 ML IVPB ONE (11:26)
[2020-03-06] MEDS: PANTOPRAZOLE SODIUM 40 MG VIAL IVPUSH SCH (11:31)
[2020-03-06] MEDS ORDERED: VANCOMYCIN 1 GM in D5W (PRE-DOCKED) 1,000 MG/250 ML IVPB SCH (12:15)
[2020-03-06] MEDS: FERROUS SO4 300 MG/5 ML ORAL SOLN UNIT DOSE CUPS GT SCH ×2 (12:44→21:39)
[2020-03-06] MEDS ORDERED: VANCOMYCIN 1 GM in D5W (PRE-DOCKED) 1,000 MG/250 ML IVPB ONE (14:15)
[2020-03-06] MEDS: LINEZOLID 600 MG PREMIX BAG 600 MG/300 ML BAG IVPB SCH (17:29)
[2020-03-06] MEDS: oxyCODONE HCL 5 MG TABLET GT PRN (19:44)
[2020-03-06] MEDS: ACETAMINOPHEN 650 MG/20.3 ML ORAL SOLUTION (CUPS) GT PRN (19:45)
[2020-03-06] MEDS: MELATONIN 1 MG TABLET PO SCH (21:39)
[2020-03-07] MEDS ORDERED: PT OWN MED DRAWER 7, Y5N ONE (02:41)
[2020-03-07] MEDS: LINEZOLID 600 MG PREMIX BAG 600 MG/300 ML BAG IVPB SCH ×2 (03:52→16:16)
[2020-03-07] MEDS ORDERED: MEROPENEM 1 GM VIAL (RESTRICTED TO ID) IVPB ONE ×3 (05:24→20:11)
[2020-03-07] MEDS ORDERED: DEXTROSE 5%-WATER 100 ML IVPB ONE ×3 (05:24→20:11)
[2020-03-07] MEDS: MEROPENEM 1 GM in DEXTROSE 5%-WATER 100 ML IVPB SCH ×4 (05:28→21:17)
[2020-03-07] MEDS: ALBUTEROL SO4 2.5/IPRATROPIUM 0.5 INH SOL 3 ML VIAL.NEB. NEB SCH ×4 (07:30→20:10)
[2020-03-07 10:08] LABS: BASO % 0.2 % (0-2.0); EOS % 7.1 % (0-4.5); HEMATOCRIT 20.7 % (35.4-49); LYMPH % 6.3 % (8-40); MCHC 33.7 g/dl (32.0-35.9); MEAN CELL VOLUME 91.9 fl (80-96); MEAN PLT VOLUME 8.6 fl (7.5-11.1); MONO % 14.9 % (3.8-10.2); NEUT % 71.5 % (42.8-82.8); PLATELET COUNT 259 K/MM3 (134-434); RBC 2.25 M/mm3 (4.00-5.60); RDW 16.7 % (11.9-15.9); WHITE BLOOD COUNT 4.6 K/mm3 (4.0-10.0)
[2020-03-07 10:12] LABS: POTASSIUM 4.2 mmol/L (3.5-5.1)
[2020-03-07 10:19] LABS: ALBUMIN 1.9 g/dl (3.4-5.0); CALCIUM 8.7 mg/dL (8.5-10.1)
[2020-03-07 10:20] LABS: BLOOD UREA NITROGEN 23.3 mg/dL (7-18)
[2020-03-07 10:23] LABS: CREATININE 0.8 mg/dL (0.55-1.3)
[2020-03-07 10:24] LABS: BILIRUBIN,TOTAL 0.3 mg/dL (0.2-1); TOT PROT 5.8 g/dl (6.4-8.2)
[2020-03-07] MEDS: FERROUS SO4 300 MG/5 ML ORAL SOLN UNIT DOSE CUPS GT SCH ×2 (10:55→21:18)
[2020-03-07] MEDS: VITAMIN B COMPLEX W/C COMBO TABLET (FP) PO SCH (10:55)
[2020-03-07] MEDS: FOLIC ACID 1 MG TABLET (FP) PEG SCH (10:55)
[2020-03-07] MEDS: PANTOPRAZOLE SODIUM 40 MG VIAL IVPUSH SCH (10:55)
[2020-03-07] MEDS: FAMOTIDINE 40 MG/5 ML ORAL SUSPENSION PEG SCH (10:56)
[2020-03-07] MEDS ORDERED: FLU VACCINE (FLULAVAL) PF 60 MCG/0.5 ML SYRINGE 2020-2021 IM ONE (19:00)
[2020-03-07] MEDS ORDERED: PNEUMOC 13-VAL CONJ-DIP CRM/PF 0.5 ML DISP.SYRIN IM ONE (19:00)
[2020-03-07] MEDS: oxyCODONE HCL 5 MG TABLET GT PRN (20:15)
[2020-03-07] MEDS: ACETAMINOPHEN 650 MG/20.3 ML ORAL SOLUTION (CUPS) GT PRN (20:16)
[2020-03-07] MEDS: MELATONIN 1 MG TABLET PO SCH (21:18)
[2020-03-08] MEDS: LINEZOLID 600 MG PREMIX BAG 600 MG/300 ML BAG IVPB SCH ×2 (03:54→15:38)
[2020-03-08] MEDS ORDERED: DEXTROSE 5%-WATER 100 ML IVPB ONE ×3 (05:05→21:47)
[2020-03-08] MEDS ORDERED: MEROPENEM 1 GM VIAL (RESTRICTED TO ID) IVPB ONE ×3 (05:05→21:47)
[2020-03-08] MEDS: MEROPENEM 1 GM in DEXTROSE 5%-WATER 100 ML IVPB SCH ×3 (05:48→22:00)
[2020-03-08] MEDS: ALBUTEROL SO4 2.5/IPRATROPIUM 0.5 INH SOL 3 ML VIAL.NEB. NEB SCH ×2 (07:45→15:00)
[2020-03-08] MEDS: VITAMIN B COMPLEX W/C COMBO TABLET (FP) PO SCH (10:42)
[2020-03-08] MEDS: FOLIC ACID 1 MG TABLET (FP) PEG SCH (10:42)
[2020-03-08] MEDS: FAMOTIDINE 40 MG/5 ML ORAL SUSPENSION PEG SCH ×2 (10:42→22:00)
[2020-03-08] MEDS: FERROUS SO4 300 MG/5 ML ORAL SOLN UNIT DOSE CUPS GT SCH ×2 (10:42→21:59)
[2020-03-08] MEDS ORDERED: PT OWN MED DRAWER 7, Y5N ONE ×2 (11:13→21:48)
[2020-03-08] MEDS: PANTOPRAZOLE SODIUM 40 MG VIAL IVPUSH SCH (11:15)
[2020-03-08 16:55] LABS: BASO % 0.2 % (0-2.0); HEMATOCRIT 20.2 % (35.4-49); LYMPH % 6.2 % (8-40); MCH 29.8 pg (25.7-33.7); MEAN CELL VOLUME 92.9 fl (80-96); MEAN PLT VOLUME 8.5 fl (7.5-11.1); MONO % 13.9 % (3.8-10.2); NEUT % 71.7 % (42.8-82.8); PLATELET COUNT 258 K/MM3 (134-434); RBC 2.18 M/mm3 (4.00-5.60); RDW 17.2 % (11.9-15.9); WHITE BLOOD COUNT 4.8 K/mm3 (4.0-10.0)
[2020-03-08 17:03] LABS: HEMOGLOBIN 6.5 GM/dL (11.7-16.9)
[2020-03-08] MEDS: MELATONIN 1 MG TABLET PO SCH (21:59)
[2020-03-09] MEDS: ACETAMINOPHEN 650 MG/20.3 ML ORAL SOLUTION (CUPS) GT PRN ×2 (00:27→21:31)
[2020-03-09] MEDS: LINEZOLID 600 MG PREMIX BAG 600 MG/300 ML BAG IVPB SCH ×2 (04:31→16:27)
[2020-03-09] MEDS ORDERED: DEXTROSE 5%-WATER 100 ML IVPB ONE ×3 (05:31→21:02)
[2020-03-09] MEDS ORDERED: MEROPENEM 1 GM VIAL (RESTRICTED TO ID) IVPB ONE ×3 (05:31→21:02)
[2020-03-09] MEDS: MEROPENEM 1 GM in DEXTROSE 5%-WATER 100 ML IVPB SCH ×3 (05:50→21:23)
[2020-03-09] MEDS: ALBUTEROL SO4 2.5/IPRATROPIUM 0.5 INH SOL 3 ML VIAL.NEB. NEB SCH ×3 (09:00→20:40)
[2020-03-09 09:26] LABS: POTASSIUM 4.3 mmol/L (3.5-5.1)
[2020-03-09 09:30] LABS: ALBUMIN 1.9 g/dl (3.4-5.0); BLOOD UREA NITROGEN 25.5 mg/dL (7-18); CALCIUM 9.3 mg/dL (8.5-10.1)
[2020-03-09 09:33] LABS: CREATININE 0.8 mg/dL (0.55-1.3)
[2020-03-09 09:35] LABS: BILIRUBIN,TOTAL 0.9 mg/dL (0.2-1); TOT PROT 5.6 g/dl (6.4-8.2)
[2020-03-09] MEDS ORDERED: PT OWN MED DRAWER 7, Y5N ONE ×5 (10:33→22:28)
[2020-03-09] MEDS: FAMOTIDINE 40 MG/5 ML ORAL SUSPENSION PEG SCH ×2 (10:34→21:23)
[2020-03-09] MEDS: FOLIC ACID 1 MG TABLET (FP) PEG SCH (10:34)
[2020-03-09 11:31] LABS: BASO % 0.2 % (0-2.0); EOS % 9.5 % (0-4.5); HEMATOCRIT 21.5 % (35.4-49); LYMPH % 6.2 % (8-40); MCH 30.3 pg (25.7-33.7); MCHC 32.5 g/dl (32.0-35.9); MEAN CELL VOLUME 93.3 fl (80-96); MEAN PLT VOLUME 8.9 fl (7.5-11.1); MONO % 12.9 % (3.8-10.2); NEUT % 71.2 % (42.8-82.8); PLATELET COUNT 263 K/MM3 (134-434); RDW 16.3 % (11.9-15.9); WHITE BLOOD COUNT 4.9 K/mm3 (4.0-10.0)
[2020-03-09] MEDS: VITAMIN B COMPLEX W/C COMBO TABLET (FP) PO SCH (12:06)
[2020-03-09] MEDS: FERROUS SO4 300 MG/5 ML ORAL SOLN UNIT DOSE CUPS GT SCH ×2 (12:06→21:23)
[2020-03-09] MEDS: POLYETHYLENE GLYCOL 3350 119 GM BTL PEG SCH (13:13)
[2020-03-09] MEDS: MELATONIN 1 MG TABLET PO SCH (21:23)
[2020-03-09] MEDS ORDERED: IRON SUCROSE INJECTION 200 MG in SODIUM CHLORIDE 90 ML IVPB ONE (23:41)
[2020-03-10] MEDS: LINEZOLID 600 MG PREMIX BAG 600 MG/300 ML BAG IVPB SCH (04:00)
[2020-03-10] MEDS ORDERED: DEXTROSE 5%-WATER 100 ML IVPB ONE ×2 (05:41→14:28)
[2020-03-10] MEDS ORDERED: MEROPENEM 1 GM VIAL (RESTRICTED TO ID) IVPB ONE ×2 (05:41→14:28)
[2020-03-10] MEDS: MEROPENEM 1 GM in DEXTROSE 5%-WATER 100 ML IVPB SCH ×2 (05:42→14:34)
[2020-03-10 10:08] LABS: BASO % 0.3 % (0-2.0); EOS % 12.5 % (0-4.5); HEMATOCRIT 21.1 % (35.4-49); HEMOGLOBIN 7.1 GM/dL (11.7-16.9); LYMPH % 8.9 % (8-40); MCH 30.8 pg (25.7-33.7); MCHC 33.7 g/dl (32.0-35.9); MEAN CELL VOLUME 91.4 fl (80-96); MEAN PLT VOLUME 8.3 fl (7.5-11.1); MONO % 15.8 % (3.8-10.2); NEUT % 62.5 % (42.8-82.8); PLATELET COUNT 256 K/MM3 (134-434); RDW 16.4 % (11.9-15.9); WHITE BLOOD COUNT 4.2 K/mm3 (4.0-10.0)
[2020-03-10 10:19] LABS: POTASSIUM 4.2 mmol/L (3.5-5.1)
[2020-03-10 10:30] LABS: CALCIUM 9.1 mg/dL (8.5-10.1)
[2020-03-10 10:31] LABS: ALBUMIN 1.9 g/dl (3.4-5.0); BLOOD UREA NITROGEN 33.5 mg/dL (7-18)
[2020-03-10 10:34] LABS: CREATININE 0.8 mg/dL (0.55-1.3)
[2020-03-10 10:35] LABS: BILIRUBIN,TOTAL 0.8 mg/dL (0.2-1); TOT PROT 5.7 g/dl (6.4-8.2)
[2020-03-10] MEDS: POLYETHYLENE GLYCOL 3350 119 GM BTL PEG SCH (11:53)
[2020-03-10] MEDS: FAMOTIDINE 40 MG/5 ML ORAL SUSPENSION PEG SCH ×2 (12:13→23:55)
[2020-03-10] MEDS: VITAMIN B COMPLEX W/C COMBO TABLET (FP) PO SCH (12:13)
[2020-03-10] MEDS: FOLIC ACID 1 MG TABLET (FP) PEG SCH (12:13)
[2020-03-10] MEDS: ALBUTEROL SO4 2.5/IPRATROPIUM 0.5 INH SOL 3 ML VIAL.NEB. NEB SCH (14:35)
[2020-03-10] MEDS ORDERED: ALBUTEROL SO4 2.5/IPRATROPIUM 0.5 INH SOL 3 ML VIAL.NEB. NEB PRN (14:42)
[2020-03-10] MEDS ORDERED: PT OWN MED DRAWER 7, Y5N ONE ×2 (17:49→23:29)
[2020-03-10] MEDS: FERROUS SO4 300 MG/5 ML ORAL SOLN UNIT DOSE CUPS GT SCH (23:54)
[2020-03-10] MEDS: MELATONIN 1 MG TABLET PO SCH (23:55)
[2020-03-11] MEDS: ACETAMINOPHEN 650 MG/20.3 ML ORAL SOLUTION (CUPS) GT PRN (11:26)
[2020-03-11] MEDS: FOLIC ACID 1 MG TABLET (FP) PEG SCH (11:29)
[2020-03-11] MEDS: POLYETHYLENE GLYCOL 3350 119 GM BTL PEG SCH (11:29)
[2020-03-11] MEDS: FERROUS SO4 300 MG/5 ML ORAL SOLN UNIT DOSE CUPS GT SCH ×2 (11:29→23:51)
[2020-03-11] MEDS: ONDANSETRON 4 MG/2 ML VIAL IVPUSH PRN (11:30)
[2020-03-11] MEDS: FAMOTIDINE 40 MG/5 ML ORAL SUSPENSION PEG SCH ×2 (11:31→23:51)
[2020-03-11] MEDS: VITAMIN B COMPLEX W/C COMBO TABLET (FP) PO SCH (11:32)
[2020-03-11] MEDS: LACTOBACILLUS ACIDOPHILUS 1 TABLET GT SCH (11:32)
[2020-03-11] MEDS ORDERED: PT OWN MED DRAWER 7, Y5N ONE ×2 (15:46→22:21)
[2020-03-11] MEDS: MELATONIN 1 MG TABLET PO SCH (23:51)
[2020-03-12] MEDS ORDERED: ACETAMINOPHEN 325 MG TABLET (FP) PO PRN (01:30)
[2020-03-12] MEDS: oxyCODONE HCL 5 MG TABLET PO PRN (01:30)
[2020-03-12] MEDS: FAMOTIDINE 40 MG/5 ML ORAL SUSPENSION PEG SCH ×2 (11:45→22:18)
[2020-03-12] MEDS: POLYETHYLENE GLYCOL 3350 119 GM BTL PEG SCH (11:45)
[2020-03-12] MEDS: FOLIC ACID 1 MG TABLET (FP) PEG SCH (11:47)
[2020-03-12] MEDS: FERROUS SO4 300 MG/5 ML ORAL SOLN UNIT DOSE CUPS GT SCH ×2 (11:47→22:18)
[2020-03-12] MEDS: VITAMIN B COMPLEX W/C COMBO TABLET (FP) PO SCH (11:47)
[2020-03-12] MEDS: LACTOBACILLUS ACIDOPHILUS 1 TABLET GT SCH (11:47)
[2020-03-12] MEDS ORDERED: METOCLOPRAMIDE HCL INJECTION 10 MG/2 ML VIAL IVPUSH ONE (12:14)
[2020-03-12 13:29] LABS: BASO % 0.3 % (0-2.0); EOS % 10.3 % (0-4.5); HEMATOCRIT 20.8 % (35.4-49); LYMPH % 9.9 % (8-40); MCH 30.7 pg (25.7-33.7); MCHC 32.8 g/dl (32.0-35.9); MEAN CELL VOLUME 93.6 fl (80-96); MEAN PLT VOLUME 7.8 fl (7.5-11.1); MONO % 11.1 % (3.8-10.2); NEUT % 68.4 % (42.8-82.8); PLATELET COUNT 263 K/MM3 (134-434); RBC 2.22 M/mm3 (4.00-5.60); RDW 16.3 % (11.9-15.9); WHITE BLOOD COUNT 4.2 K/mm3 (4.0-10.0)
[2020-03-12] MEDS: ONDANSETRON 4 MG/2 ML VIAL IVPUSH PRN (13:36)
[2020-03-12 13:39] LABS: HEMOGLOBIN 6.8 GM/dL (11.7-16.9)
[2020-03-12] MEDS: METOCLOPRAMIDE HCL 10 MG/10 ML UNIT DOSE CUP GT SCH (16:21)
[2020-03-12] MEDS ORDERED: PT OWN MED DRAWER 7, Y5N ONE (20:35)
[2020-03-12] MEDS: MELATONIN 1 MG TABLET PO SCH (22:18)
[2020-03-13] MEDS: oxyCODONE HCL 5 MG TABLET PO PRN (02:10)
[2020-03-13] MEDS: METOCLOPRAMIDE HCL 10 MG/10 ML UNIT DOSE CUP GT SCH ×2 (06:30→11:30)
[2020-03-13] MEDS ORDERED: FERRIC CARBOXYMALTOSE 750 MG in SODIUM CHLORIDE 250 ML IVPB ONE (08:00)
[2020-03-13] MEDS ORDERED: PT OWN MED DRAWER 7, Y5N ONE (09:15)
[2020-03-13] MEDS: LACTOBACILLUS ACIDOPHILUS 1 TABLET GT SCH (09:27)
[2020-03-13] MEDS: FOLIC ACID 1 MG TABLET (FP) PEG SCH (09:28)
[2020-03-13] MEDS: VITAMIN B COMPLEX W/C COMBO TABLET (FP) PO SCH (09:28)
[2020-03-13] MEDS: POLYETHYLENE GLYCOL 3350 119 GM BTL PEG SCH (09:33)
[2020-03-13 09:58] LABS: BASO % 0.3 % (0-2.0); EOS % 6.1 % (0-4.5); HEMATOCRIT 26.1 % (35.4-49); HEMOGLOBIN 8.7 GM/dL (11.7-16.9); LYMPH % 10.8 % (8-40); MCH 29.7 pg (25.7-33.7); MCHC 33.4 g/dl (32.0-35.9); MEAN CELL VOLUME 88.8 fl (80-96); MEAN PLT VOLUME 7.6 fl (7.5-11.1); MONO % 13.4 % (3.8-10.2); NEUT % 69.4 % (42.8-82.8); PLATELET COUNT 267 K/MM3 (134-434); RBC 2.93 M/mm3 (4.00-5.60); RDW 18.9 % (11.9-15.9); WHITE BLOOD COUNT 4.5 K/mm3 (4.0-10.0)
[2020-03-13] MEDS ORDERED: PANTOPRAZOLE SODIUM 40 MG VIAL IVPUSH SCH (10:00)
[2020-03-13] MEDS ORDERED: SUCRALFATE 1 GM/10 ML UNIT DOSE CUPS GT SCH (10:00)
[2020-03-13] MEDS: FERROUS SO4 300 MG/5 ML ORAL SOLN UNIT DOSE CUPS GT SCH (13:47)
[2020-03-13 14:50] VITALS: BP 105/75; PULSE 71; TEMP 98.3
== END 2020-03-13 15:22 | DRG 870 ==
LOC: JER 06:48 → JERBED 09:11 → J5S 03-05 05:54
PROVIDERS: ADMIT Internal Medicine; ATTEND Family Medicine
PROC: 5A1955Z Respiratory Ventilation, Greater than 96 Consecutive Hours (ICD-10-PCS; principal; 2020-03-02)
PROC: 30233N1 Transfusion of Nonautologous Red Blood Cells into Peripheral Vein, Percutaneous Approach (ICD-10-PCS; 2020-03-08)
DX: A41.02 Sepsis due to Methicillin resistant Staphylococcus aureus (principal); J15.212 Pneumonia due to Methicillin resistant Staphylococcus aureus; J96.21 Acute and chronic respiratory failure with hypoxia; N39.0 Urinary tract infection, site not specified; Z16.12 Extended spectrum beta lactamase (ESBL) resistance; J90 Pleural effusion, not elsewhere classified; R64 Cachexia; K62.6 Ulcer of anus and rectum; K62.5 Hemorrhage of anus and rectum; J95.851 Ventilator associated pneumonia; Z99.11 Dependence on respirator [ventilator] status; I48.0 Paroxysmal atrial fibrillation; I10 Essential (primary) hypertension; J44.9 Chronic obstructive pulmonary disease, unspecified; Z93.0 Tracheostomy status; Z93.1 Gastrostomy status; Z95.2 Presence of prosthetic heart valve; R16.2 Hepatomegaly with splenomegaly, not elsewhere classified; D64.9 Anemia, unspecified; N18.9 Chronic kidney disease, unspecified; D72.819 Decreased white blood cell count, unspecified; R19.7 Diarrhea, unspecified; E16.2 Hypoglycemia, unspecified; Z68.24 Body mass index [BMI] 24.0-24.9, adult
CPT/HCPCS: 36415; 36430; 71045-TC-FY; 71275-TC; 80053; 81003; 82272; 82607; 82728; 82747; 82962; 83540; 83550; 83605; 83615; 83880; 84252; 84439; 84443; 84484; 85014; 85025; 85379; 86140; 86850; 86900; 86901; 86922; 87040; 87070; 87086; 87186; 87205; 87804; 90670; 93005; 93010; 93306-TC; 93970-TC; 94002; 94640; 99285-25; C9803; G0008; G0009; J1439; P9058; Q2036; Q9967; U0003